=== PATIENT | male | born 1955 | race Caucasian/White ===

== ENCOUNTER 2020-04-24 09:42 | Observation (INO) ==
[2020-04-24 10:12] LABS: Basophils % 0.5 %; Eosinophils % 0.5 %; Hematocrit 41.1 % (37.5-50.1); Hemoglobin 13.4 g/dL (12.9-16.9); Immature Granulocytes % 0.2 % (0-4); Lymphocytes # 0.3 K/mcL (0.6-4.6); Lymphocytes % 7.3 %; Mean Corpuscular HGB Conc 32.6 g/dL (31.6-35.5); Mean Corpuscular Hemoglobin 30.7 pg (28.0-33.3); Mean Corpuscular Volume 94.3 fL (83.0-100.0); Mean Platelet Volume 8.2 fL (9.4-12.4); Monocytes # 0.5 K/mcL (0.0-1.3); Monocytes % 11.2 %; Neutrophils # 3.3 K/mcL (1.6-8.9); Platelet Count 137 K/mcL (140-400); Red Blood Count 4.36 M/mcL (4.19-5.50); Red Cell Distribution Width 13.2 % (11.5-14.5); Segmented Neutrophils % 80.3 %; White Blood Count 4.1 K/mcL (4.3-11.1)
[2020-04-24 10:35] LABS: Alanine Aminotransferase 31 Units/L (7-52); Albumin 4.6 g/dL (3.5-5.7); Albumin/Globulin Ratio 1.7 (1.1-2.2); Alkaline Phosphatase 41 Units/L (34-104); Aspartate Amino Transferase 33 Units/L (13-39); BUN/Creatinine Ratio 14 (6-26); Bilirubin,Total 0.5 mg/dL (0.3-1.0); Blood Urea Nitrogen 14 mg/dL (8-23); Calcium 9.5 mg/dL (8.6-10.3); Carbon Dioxide 24 mEq/L (23-29); Chloride 101 mEq/L (98-107); Globulin 2.7 g/dL (2.4-3.5); Glucose 180 mg/dL (70-105); Osmolality,Calculated 283 (280-300); Sodium 134 mEq/L (136-145); Total Protein 7.3 g/dL (6.4-8.9); eGFR For African Americans > 60 (> 60); eGFR For Non-African Americans > 60 (> 60)
[2020-04-24 10:39] LABS: Troponin I 0.04 ng/mL (< 0.04)
[2020-04-24] MEDS ORDERED: Dexamethasone 4 MG/ML VIAL IVP ONE (10:49)
[2020-04-24] MEDS ORDERED: Acetaminophen 325 MG TABLET PO PRN (10:58)
[2020-04-24] MEDS ORDERED: 0.9 % Sodium Chloride 1,000 ML IVC SCH (11:00)
[2020-04-24] MEDS: atenoloL 50 MG TABLET PO SCH (13:39)
[2020-04-24] MEDS ORDERED: Dextrose Gel 15 GM/37.5 ML TUBE PO PRN ×2 (16:05)
[2020-04-24] MEDS ORDERED: *HR* Dextrose 50 % in Water (Vial) 50 ML VIAL IVP PRN (16:05)
[2020-04-24] MEDS ORDERED: D5% in Water 1,000 ML IVC PRN (16:05)
[2020-04-24] MEDS: Insulin LISPRO 300 UNITS/3 ML VIAL SUBQ SCH (18:03)
[2020-04-25 05:40] LABS: Hematocrit 41.4 % (37.5-50.1); Hemoglobin 13.5 g/dL (12.9-16.9); Mean Corpuscular HGB Conc 32.6 g/dL (31.6-35.5); Mean Corpuscular Hemoglobin 30.5 pg (28.0-33.3); Mean Corpuscular Volume 93.7 fL (83.0-100.0); Mean Platelet Volume 8.5 fL (9.4-12.4); Platelet Count 125 K/mcL (140-400); Red Blood Count 4.42 M/mcL (4.19-5.50); Red Cell Distribution Width 13.4 % (11.5-14.5); White Blood Count 2.8 K/mcL (4.3-11.1)
[2020-04-25 05:46] LABS: INR 1.1; Prothrombin Time 13.1 Seconds (9.4-12.1)
[2020-04-25 06:00] LABS: BUN/Creatinine Ratio 15 (6-26); Blood Urea Nitrogen 17 mg/dL (8-23); Calcium 9.4 mg/dL (8.6-10.3); Carbon Dioxide 25 mEq/L (23-29); Chloride 100 mEq/L (98-107); Glucose 182 mg/dL (70-105); Magnesium 1.9 mg/dL (1.6-2.6); Osmolality,Calculated 286 (280-300); Phosphorous 3.7 mg/dL (2.7-4.5); Potassium 3.9 mEq/L (3.5-5.1); Sodium 135 mEq/L (136-145); eGFR For African Americans > 60 (> 60); eGFR For Non-African Americans > 60 (> 60)
[2020-04-25] MEDS: Dexamethasone 4 MG/ML VIAL IVP SCH (08:18)
[2020-04-25] MEDS: Isosorbide MONOnitrate (24 HR) 30 MG TAB.ER.24H PO SCH (08:19)
[2020-04-25] MEDS: Aspirin Enteric Coated 81 MG Tablet PO SCH (08:19)
[2020-04-25] MEDS: Insulin LISPRO 300 UNITS/3 ML VIAL SUBQ SCH ×3 (08:20→16:53)
[2020-04-25] MEDS: atenoloL 50 MG TABLET PO SCH (08:20)
[2020-04-25] MEDS ORDERED: lisinopriL 10 MG TABLET PO SCH (09:00)
[2020-04-25] MEDS: Ondansetron 4 MG/2 ML VIAL IVP PRN ×2 (11:13→19:50)
[2020-04-25] MEDS ORDERED: Ondansetron 4 MG/2 ML VIAL IM ONE (11:20)
[2020-04-25] MEDS ORDERED: *HR* Promethazine 25 MG/ML VIAL IM ONE (11:47)
[2020-04-26 05:27] LABS: Hematocrit 40.1 % (37.5-50.1); Hemoglobin 12.9 g/dL (12.9-16.9); Immature Granulocytes % 0.3 % (0-4); Lymphocytes # 0.4 K/mcL (0.6-4.6); Lymphocytes % 11.9 %; Mean Corpuscular HGB Conc 32.2 g/dL (31.6-35.5); Mean Corpuscular Volume 96.4 fL (83.0-100.0); Mean Platelet Volume 8.8 fL (9.4-12.4); Monocytes # 0.4 K/mcL (0.0-1.3); Neutrophils # 2.7 K/mcL (1.6-8.9); Platelet Count 143 K/mcL (140-400); Red Blood Count 4.16 M/mcL (4.19-5.50); Red Cell Distribution Width 13.6 % (11.5-14.5); Segmented Neutrophils % 76.8 %; White Blood Count 3.5 K/mcL (4.3-11.1)
[2020-04-26 05:40] LABS: Albumin 4.4 g/dL (3.5-5.7); Albumin/Globulin Ratio 1.5 (1.1-2.2); Bilirubin,Total 0.4 mg/dL (0.3-1.0); Calcium 9.2 mg/dL (8.6-10.3); Globulin 2.9 g/dL (2.4-3.5); Potassium 4.3 mEq/L (3.5-5.1); Total Protein 7.3 g/dL (6.4-8.9)
[2020-04-26] MEDS ORDERED: 0.9 % Sodium Chloride 500 ML IVC ONE (08:08)
[2020-04-26 08:13] VITALS: BP 112/67
[2020-04-26] MEDS ORDERED: 0.9 % Sodium Chloride 1,000 ML IVC SCH (08:15)
[2020-04-26 08:54] LABS: Troponin I 0.07 ng/mL (< 0.04)
[2020-04-26] MEDS ORDERED: Finasteride 5 MG TABLET PO SCH (09:00)
[2020-04-26] MEDS: Insulin LISPRO 300 UNITS/3 ML VIAL SUBQ SCH ×2 (09:02→09:20)
[2020-04-26] MEDS: Isosorbide MONOnitrate (24 HR) 30 MG TAB.ER.24H PO SCH (09:03)
[2020-04-26] MEDS: Aspirin Enteric Coated 81 MG Tablet PO SCH (09:03)
[2020-04-26] MEDS: Dexamethasone 4 MG/ML VIAL IVP SCH (09:04)
== END 2020-04-26 12:45 | disposition home or self-care (01) ==
LOC: EMEROOARM 09:42 → 2NENU 09:42 → SUATTDRO 10:58 → 2NENU 13:07
PROVIDERS: ADMIT Internal Medicine; ATTEND Family Medicine

== ENCOUNTER 2020-04-28 09:34 | Inpatient (IN) ==
[2020-04-28 10:38] LABS: ABG Base Excess -8 mEq/L (-2 to 3); ABG HCO3 25 mEq/L (21-27); ABG Oxygen Saturation 91 % (95-98); ABG PCO2 94 mmHg (35-45); ABG PH 7.04 pH Units (7.32-7.45); ABG PO2 92 mmHg (85-104); ABG TCO2 28 mEq/L (20-26); Blood Gas Modality ASSIST CONTROL; Blood Gas VT 500 cc
[2020-04-28] MEDS ORDERED: 0.9 % Sodium Chloride 1,000 ML IVC ONE (10:45)
[2020-04-28] MEDS ORDERED: *HR* Heparin 5,000 UNIT/ML VIAL IVP PRN ×2 (10:49)
[2020-04-28] MEDS ORDERED: *HR* Heparin 5,000 UNIT/ML VIAL IVP ONE (10:49)
[2020-04-28] MEDS ORDERED: Perflutren Lipid Microsphere 1.3 ML in 0.9 % Sodium Chloride 8.7 ML IVP PRN (10:56)
[2020-04-28] MEDS: FentaNYL (PF) 1,000 MCG/100 ML IV.SOLN IVC SCH ×3 (11:09→23:28)
[2020-04-28 11:23] LABS: Albumin 3.7 g/dL (3.5-5.7); Albumin/Globulin Ratio 1.4 (1.1-2.2); Bilirubin,Total 0.4 mg/dL (0.3-1.0); Calcium 9.3 mg/dL (8.6-10.3); Globulin 2.7 g/dL (2.4-3.5); Magnesium 2.2 mg/dL (1.6-2.6); Total Protein 6.4 g/dL (6.4-8.9); Troponin I 0.3 ng/mL (< 0.04)
[2020-04-28 11:59] LABS: Basophils % 0.2 %; Hematocrit 40.7 % (37.5-50.1); Hemoglobin 12.5 g/dL (12.9-16.9); Immature Granulocytes % 0.6 % (0-4); Lymphocytes # 0.2 K/mcL (0.6-4.6); Lymphocytes % 3.4 %; Mean Corpuscular HGB Conc 30.7 g/dL (31.6-35.5); Mean Corpuscular Hemoglobin 30.3 pg (28.0-33.3); Mean Corpuscular Volume 98.5 fL (83.0-100.0); Mean Platelet Volume 9.1 fL (9.4-12.4); Monocytes # 0.1 K/mcL (0.0-1.3); Monocytes % 1.6 %; Neutrophils # 5.8 K/mcL (1.6-8.9); Platelet Count 105 K/mcL (140-400); Red Blood Count 4.13 M/mcL (4.19-5.50); Red Cell Distribution Width 13.3 % (11.5-14.5); Segmented Neutrophils % 94.2 %; White Blood Count 6.2 K/mcL (4.3-11.1)
[2020-04-28 12:04] LABS: INR 1.1; Prothrombin Time 12.9 Seconds (9.4-12.1)
[2020-04-28] MEDS ORDERED: *HR* LORazepam 2 MG/ML VIAL IVP ONE (12:04)
[2020-04-28] MEDS ORDERED: Isovue-370 500 ML BOTTLE IVP ONE ×2 (12:04→12:05)
[2020-04-28] MEDS ORDERED: *HR* LORazepam 2 MG/ML VIAL ONE (12:05)
[2020-04-28 12:07] LABS: Activated Partial Thrombo Time 25.9 Seconds (26.0-36.0); Heparin anti-factor XA UFH < 0.04 IU/mL (0.30-0.70)
[2020-04-28 13:31] LABS: ABG Base Excess -3 mEq/L (-2 to 3); ABG HCO3 25 mEq/L (21-27); ABG Oxygen Saturation 91 % (95-98); ABG PCO2 59 mmHg (35-45); ABG PH 7.24 pH Units (7.32-7.45); ABG PO2 72 mmHg (85-104); ABG TCO2 27 mEq/L (20-26); Blood Gas Modality ASSIST CONTROL; Blood Gas VT 400 cc
[2020-04-28] MEDS ORDERED: Acetaminophen 650 MG RECTAL SUPP RC PRN (15:12)
[2020-04-28] MEDS ORDERED: Dexamethasone 4 MG/ML VIAL IVP ONE (15:12)
[2020-04-28] MEDS ORDERED: Ondansetron 4 MG/2 ML VIAL IVP PRN (15:12)
[2020-04-28] MEDS ORDERED: Artificial Tears SOLN 15 ML BOTTLE BOTH EYES PRN (15:12)
[2020-04-28] MEDS ORDERED: Naloxone 0.4 MG/ML INJ IVP PRN (15:12)
[2020-04-28] MEDS ORDERED: *HR* Midazolam HCl 5 MG/5 ML VIAL IVP ONE (15:55)
[2020-04-28] MEDS ORDERED: *HR* EPINEPHrine 1 MG/10 ML SYRINGE IVP ONE (16:44)
[2020-04-28] MEDS ORDERED: Remdesivir 200 MG in 0.9 % Sodium Chloride 100 ML IVPB ONE (17:00)
[2020-04-28] MEDS: Midazolam HCl 50 MG/100 ML IV.SOLN IVC SCH (18:04)
[2020-04-28 18:36] LABS: ABG Base Excess -2 mEq/L (-2 to 3); ABG HCO3 26 mEq/L (21-27); ABG Oxygen Saturation 93 % (95-98); ABG PCO2 57 mmHg (35-45); ABG PH 7.27 pH Units (7.32-7.45); ABG PO2 78 mmHg (85-104); ABG TCO2 28 mEq/L (20-26); Blood Gas Modality ASSIST CONTROL; Blood Gas VT 460 cc
[2020-04-28] MEDS: Dexmedetomidine HCl 400 MCG/100 ML MLS IVC SCH (19:23)
[2020-04-28] MEDS: Artificial Tears SOLN 15 ML BOTTLE BOTH EYES SCH ×3 (19:24→23:20)
[2020-04-28] MEDS: Heparin 25,000UNIT/250ML 1/2NS 25,000 UNIT/250 ML IV.SOLN IVC SCH (19:26)
[2020-04-28] MEDS ORDERED: Dextrose Gel 15 GM/37.5 ML TUBE PO PRN ×2 (19:30)
[2020-04-28] MEDS ORDERED: D5% in Water 1,000 ML IVC PRN (19:30)
[2020-04-28] MEDS ORDERED: *HR* Dextrose 50 % in Water (Vial) 50 ML VIAL IVP PRN (19:30)
[2020-04-28 20:09] LABS: INR 1.2; Prothrombin Time 13.3 Seconds (9.4-12.1)
[2020-04-28 20:12] LABS: Basophils % 0.1 %; Hematocrit 39.3 % (37.5-50.1); Hemoglobin 12.5 g/dL (12.9-16.9); Immature Granulocytes % 0.4 % (0-4); Lymphocytes # 0.2 K/mcL (0.6-4.6); Mean Corpuscular HGB Conc 31.8 g/dL (31.6-35.5); Mean Corpuscular Volume 94.5 fL (83.0-100.0); Mean Platelet Volume 9.3 fL (9.4-12.4); Monocytes # 0.2 K/mcL (0.0-1.3); Neutrophils # 6.5 K/mcL (1.6-8.9); Platelet Count 100 K/mcL (140-400); Red Blood Count 4.16 M/mcL (4.19-5.50); Red Cell Distribution Width 13.5 % (11.5-14.5); Segmented Neutrophils % 93.5 %; White Blood Count 6.9 K/mcL (4.3-11.1)
[2020-04-28 20:17] LABS: VBG Ionized Calcium 1.13 mmol/L (1.15-1.35)
[2020-04-28] MEDS ORDERED: 0.9 % Sodium Chloride 1,000 ML ONE (20:23)
[2020-04-28 20:24] LABS: Calcium 8.8 mg/dL (8.6-10.3); Magnesium 1.9 mg/dL (1.6-2.6); Potassium 5.4 mEq/L (3.5-5.1)
[2020-04-28] MEDS: Chlorhexidine Rinse 15 ML MOUTHWASH MM SCH (20:29)
[2020-04-28] MEDS: Vecuronium 50 MG in 0.9 % Sodium Chloride 150 ML IVC SCH (21:15)
[2020-04-28] MEDS: Insulin Human Regular 100 UNIT in 0.9 % Sodium Chloride 100 ML IVC SCH (22:01)
[2020-04-29 02:28] LABS: Red Cell Distribution Width 13.4 % (11.5-14.5)
[2020-04-29 02:30] LABS: Immature Granulocytes % 0.2 % (0-4); Immature Platelets 2.3 % (1.1-6.1); Lymphocytes # 0.2 K/mcL (0.6-4.6); Lymphocytes % 4.3 %; Mean Corpuscular HGB Conc 32.4 g/dL (31.6-35.5); Mean Corpuscular Hemoglobin 30.2 pg (28.0-33.3); Mean Corpuscular Volume 93.2 fL (83.0-100.0); Mean Platelet Volume 9.1 fL (9.4-12.4); Monocytes # 0.1 K/mcL (0.0-1.3); Monocytes % 2.3 %; Platelet Count 106 K/mcL (140-400); Red Blood Count 3.97 M/mcL (4.19-5.50); Segmented Neutrophils % 93.2 %; White Blood Count 5.6 K/mcL (4.3-11.1)
[2020-04-29 02:31] LABS: VBG Ionized Calcium 1.15 mmol/L (1.15-1.35)
[2020-04-29 02:31] LABS: Neutrophils # 5.2 K/mcL (1.6-8.9)
[2020-04-29 02:32] LABS: INR 1.3; Prothrombin Time 14.7 Seconds (9.4-12.1)
[2020-04-29 02:52] LABS: Albumin 3.5 g/dL (3.5-5.7); Albumin/Globulin Ratio 1.3 (1.1-2.2); Bilirubin,Total 0.5 mg/dL (0.3-1.0); Calcium 8.8 mg/dL (8.6-10.3); Globulin 2.6 g/dL (2.4-3.5); Potassium 3.9 mEq/L (3.5-5.1); Total Protein 6.1 g/dL (6.4-8.9)
[2020-04-29 03:36] LABS: Heparin anti-factor XA UFH 0.61 IU/mL (0.30-0.70)
[2020-04-29] MEDS: Vecuronium 50 MG in 0.9 % Sodium Chloride 150 ML IVC SCH ×3 (03:40→17:30)
[2020-04-29] MEDS: Dexmedetomidine HCl 400 MCG/100 ML MLS IVC SCH (03:46)
[2020-04-29 03:57] LABS: Troponin I 1.06 ng/mL (< 0.04)
[2020-04-29] MEDS: Artificial Tears SOLN 15 ML BOTTLE BOTH EYES SCH ×5 (04:00→19:32)
[2020-04-29] MEDS: FentaNYL (PF) 1,000 MCG/100 ML IV.SOLN IVC SCH (04:21)
[2020-04-29 04:41] LABS: ABG Base Excess -2 mEq/L (-2 to 3); ABG HCO3 24 mEq/L (21-27); ABG Oxygen Saturation 99 % (95-98); ABG PCO2 45 mmHg (35-45); ABG PH 7.34 pH Units (7.32-7.45); ABG PO2 138 mmHg (85-104); ABG TCO2 26 mEq/L (20-26); Blood Gas VT 450 cc
[2020-04-29] MEDS: Midazolam HCl 50 MG/100 ML IV.SOLN IVC SCH ×2 (04:45→18:00)
[2020-04-29] MEDS: Pantoprazole 40 MG VIAL IVP SCH (07:42)
[2020-04-29] MEDS: Chlorhexidine Rinse 15 ML MOUTHWASH MM SCH ×2 (07:42→19:31)
[2020-04-29 08:19] LABS: VBG Ionized Calcium 1.16 mmol/L (1.15-1.35)
[2020-04-29 08:24] LABS: Heparin anti-factor XA UFH 0.79 IU/mL (0.30-0.70)
[2020-04-29 08:25] LABS: INR 1.2; Prothrombin Time 14.1 Seconds (9.4-12.1)
[2020-04-29 08:38] LABS: Calcium 8.8 mg/dL (8.6-10.3); Potassium 3.8 mEq/L (3.5-5.1)
[2020-04-29] MEDS: FentaNYL (PF) 2,500 MCG/50 ML IV.SOLN IVC SCH ×2 (10:12→23:01)
[2020-04-29 14:46] LABS: INR 1.2; Prothrombin Time 14.2 Seconds (9.4-12.1)
[2020-04-29 14:57] LABS: VBG Ionized Calcium 1.17 mmol/L (1.15-1.35)
[2020-04-29 15:00] LABS: Calcium 8.7 mg/dL (8.6-10.3); Magnesium 1.9 mg/dL (1.6-2.6); Potassium 3.8 mEq/L (3.5-5.1)
[2020-04-29] MEDS: Insulin Human Regular 100 UNIT in 0.9 % Sodium Chloride 100 ML IVC SCH (16:00)
[2020-04-29] MEDS: Remdesivir 100 MG in 0.9 % Sodium Chloride 100 ML IVPB SCH (16:26)
[2020-04-29] MEDS: Norepinephrine 4 MG/254 ML IV.SOLN IVC SCH (19:05)
[2020-04-29] MEDS: Heparin 25,000UNIT/250ML 1/2NS 25,000 UNIT/250 ML IV.SOLN IVC SCH ×2 (19:05→23:45)
[2020-04-29 20:01] LABS: VBG Ionized Calcium 1.11 mmol/L (1.15-1.35)
[2020-04-29 20:04] LABS: Heparin anti-factor XA UFH 0.59 IU/mL (0.30-0.70)
[2020-04-29 20:05] LABS: INR 1.2; Prothrombin Time 13.8 Seconds (9.4-12.1)
[2020-04-29 20:18] LABS: Calcium 8.4 mg/dL (8.6-10.3); Magnesium 1.9 mg/dL (1.6-2.6); Potassium 3.8 mEq/L (3.5-5.1)
[2020-04-30] MEDS: Artificial Tears SOLN 15 ML BOTTLE BOTH EYES SCH ×6 (00:07→19:47)
[2020-04-30] MEDS: Vecuronium 50 MG in 0.9 % Sodium Chloride 150 ML IVC SCH ×4 (00:41→22:36)
[2020-04-30] MEDS: Dexmedetomidine HCl 400 MCG/100 ML MLS IVC SCH (03:20)
[2020-04-30] MEDS: Norepinephrine 4 MG/254 ML IV.SOLN IVC SCH (04:18)
[2020-04-30 04:33] LABS: Basophils % 0.2 %; Hematocrit 36.5 % (37.5-50.1); Hemoglobin 11.9 g/dL (12.9-16.9); Immature Granulocytes % 0.8 % (0-4); Lymphocytes # 0.3 K/mcL (0.6-4.6); Lymphocytes % 5.3 %; Mean Corpuscular HGB Conc 32.6 g/dL (31.6-35.5); Mean Corpuscular Hemoglobin 31.2 pg (28.0-33.3); Mean Corpuscular Volume 95.5 fL (83.0-100.0); Mean Platelet Volume 9.8 fL (9.4-12.4); Monocytes # 0.2 K/mcL (0.0-1.3); Monocytes % 3.6 %; Neutrophils # 4.6 K/mcL (1.6-8.9); Platelet Count 105 K/mcL (140-400); Red Blood Count 3.82 M/mcL (4.19-5.50); Red Cell Distribution Width 13.5 % (11.5-14.5); Segmented Neutrophils % 90.1 %; White Blood Count 5.1 K/mcL (4.3-11.1)
[2020-04-30 04:34] LABS: ABG Base Excess -4 mEq/L (-2 to 3); ABG HCO3 23 mEq/L (21-27); ABG Oxygen Saturation 96 % (95-98); ABG PCO2 48 mmHg (35-45); ABG PH 7.28 pH Units (7.32-7.45); ABG PO2 89 mmHg (85-104); ABG TCO2 24 mEq/L (20-26); Blood Gas VT 450 cc
[2020-04-30 04:36] LABS: INR 1.2; Prothrombin Time 14.3 Seconds (9.4-12.1)
[2020-04-30 04:46] LABS: VBG Ionized Calcium 1.06 mmol/L (1.15-1.35)
[2020-04-30 04:53] LABS: Calcium 8.2 mg/dL (8.6-10.3); Magnesium 1.9 mg/dL (1.6-2.6); Potassium 4.3 mEq/L (3.5-5.1)
[2020-04-30] MEDS: Insulin LISPRO 300 UNITS/3 ML VIAL SUBQ SCH ×6 (05:00→23:40)
[2020-04-30] MEDS: Midazolam HCl 50 MG/100 ML IV.SOLN IVC SCH ×2 (06:41→19:43)
[2020-04-30] MEDS: Chlorhexidine Rinse 15 ML MOUTHWASH MM SCH ×2 (07:42→19:45)
[2020-04-30] MEDS: Pantoprazole 40 MG VIAL IVP SCH (07:42)
[2020-04-30 10:37] LABS: INR 1.3; Prothrombin Time 14.5 Seconds (9.4-12.1)
[2020-04-30 10:51] LABS: Calcium 8.3 mg/dL (8.6-10.3); Potassium 4.1 mEq/L (3.5-5.1)
[2020-04-30 10:57] LABS: VBG Ionized Calcium 1.09 mmol/L (1.15-1.35)
[2020-04-30] MEDS: FentaNYL (PF) 2,500 MCG/50 ML IV.SOLN IVC SCH ×2 (11:50→23:06)
[2020-04-30 11:52] LABS: Albumin 3.3 g/dL (3.5-5.7); Albumin/Globulin Ratio 1.2 (1.1-2.2); Bilirubin,Direct 0.2 mg/dL (0.0-0.2); Bilirubin,Indirect 0.4 mg/dL (0.0-1.0); Bilirubin,Total 0.6 mg/dL (0.3-1.0); Globulin 2.7 g/dL (2.4-3.5)
[2020-04-30] MEDS ORDERED: Cefepime HCl 1,000 MG in Water for inj. (sterile) 10 ML IVP SCH (16:00)
[2020-04-30] MEDS: Dexamethasone 4 MG/ML VIAL IVP SCH (16:01)
[2020-04-30] MEDS: Cefepime HCl 1,000 MG in Water for inj. (sterile) 10 ML IVP SCH (16:01)
[2020-04-30] MEDS: Remdesivir 100 MG in 0.9 % Sodium Chloride 100 ML IVPB SCH (16:25)
[2020-04-30 21:05] LABS: VBG Ionized Calcium 1.07 mmol/L (1.15-1.35)
[2020-04-30 21:16] LABS: Heparin anti-factor XA UFH 0.38 IU/mL (0.30-0.70); INR 1.2; Prothrombin Time 13.8 Seconds (9.4-12.1)
[2020-04-30 21:20] LABS: Activated Partial Thrombo Time 43.8 Seconds (26.0-36.0)
[2020-04-30 21:23] LABS: Albumin 3.3 g/dL (3.5-5.7); Albumin/Globulin Ratio 1.3 (1.1-2.2); Bilirubin,Total 0.5 mg/dL (0.3-1.0); Calcium 8.2 mg/dL (8.6-10.3); Globulin 2.6 g/dL (2.4-3.5); Magnesium 2.1 mg/dL (1.6-2.6); Phosphorous 4.2 mg/dL (2.7-4.5); Potassium 4.2 mEq/L (3.5-5.1); Total Protein 5.9 g/dL (6.4-8.9)
[2020-04-30] MEDS: Calcium Gluconate 1gm/50mL 1 GM/50 ML BAG IVPB SCH ×2 (22:38→23:05)
[2020-05-01] MEDS: Cefepime HCl 1,000 MG in Water for inj. (sterile) 10 ML IVP SCH ×4 (00:54→23:17)
[2020-05-01] MEDS: Artificial Tears SOLN 15 ML BOTTLE BOTH EYES SCH ×7 (00:55→23:17)
[2020-05-01] MEDS: Insulin LISPRO 300 UNITS/3 ML VIAL SUBQ SCH ×6 (03:18→23:16)
[2020-05-01 03:44] LABS: Basophils % 0.2 %; Hematocrit 38.6 % (37.5-50.1); Immature Granulocytes % 2.6 % (0-4); Immature Platelets 3.9 % (1.1-6.1); Lymphocytes # 0.2 K/mcL (0.6-4.6); Lymphocytes % 3.1 %; Mean Corpuscular HGB Conc 31.1 g/dL (31.6-35.5); Mean Corpuscular Hemoglobin 29.6 pg (28.0-33.3); Mean Corpuscular Volume 95.3 fL (83.0-100.0); Mean Platelet Volume 9.9 fL (9.4-12.4); Monocytes # 0.2 K/mcL (0.0-1.3); Monocytes % 3.4 %; Neutrophils # 5.3 K/mcL (1.6-8.9); Nucleated Red Blood Cells 0.9 /100 WBC (0); Platelet Count 143 K/mcL (140-400); Red Blood Count 4.05 M/mcL (4.19-5.50); Red Cell Distribution Width 13.6 % (11.5-14.5); Segmented Neutrophils % 90.7 %; White Blood Count 5.8 K/mcL (4.3-11.1)
[2020-05-01 03:52] LABS: INR 1.2; Prothrombin Time 13.7 Seconds (9.4-12.1)
[2020-05-01 03:55] LABS: Activated Partial Thrombo Time 33.9 Seconds (26.0-36.0)
[2020-05-01 03:59] LABS: VBG Ionized Calcium 1.13 mmol/L (1.15-1.35)
[2020-05-01 04:01] LABS: Chol/HDL Ratio 7.6 (0-4.9); Cholesterol 175 mg/dL (< 200); HDL Cholesterol 23 mg/dL (40-59); Triglycerides 510 mg/dL (< 150)
[2020-05-01 04:08] LABS: Albumin 3.2 g/dL (3.5-5.7); Albumin/Globulin Ratio 1.1 (1.1-2.2); Bilirubin,Direct 0.1 mg/dL (0.0-0.2); Bilirubin,Indirect 0.4 mg/dL (0.0-1.0); Bilirubin,Total 0.5 mg/dL (0.3-1.0); Calcium 8.3 mg/dL (8.6-10.3); Globulin 2.8 g/dL (2.4-3.5); Magnesium 2.1 mg/dL (1.6-2.6); Potassium 4.4 mEq/L (3.5-5.1)
[2020-05-01 04:23] LABS: Platelet Estimate Slight Decrease (Normal)
[2020-05-01 05:09] LABS: ABG Base Excess -4 mEq/L (-2 to 3); ABG HCO3 23 mEq/L (21-27); ABG Oxygen Saturation 95 % (95-98); ABG PCO2 49 mmHg (35-45); ABG PH 7.28 pH Units (7.32-7.45); ABG PO2 86 mmHg (85-104); ABG TCO2 24 mEq/L (20-26); Blood Gas Modality ASSIST CONTROL; Blood Gas VT 480 cc
[2020-05-01] MEDS: Heparin 25,000UNIT/250ML 1/2NS 25,000 UNIT/250 ML IV.SOLN IVC SCH (05:09)
[2020-05-01] MEDS: Norepinephrine 4 MG/254 ML IV.SOLN IVC SCH (07:34)
[2020-05-01] MEDS: Dexmedetomidine HCl 400 MCG/100 ML MLS IVC SCH ×3 (07:34→17:18)
[2020-05-01] MEDS: Chlorhexidine Rinse 15 ML MOUTHWASH MM SCH ×2 (08:07→21:07)
[2020-05-01] MEDS: Dexamethasone 4 MG/ML VIAL IVP SCH (08:07)
[2020-05-01] MEDS: Pantoprazole 40 MG VIAL IVP SCH (08:07)
[2020-05-01] MEDS: Midazolam HCl 50 MG/100 ML IV.SOLN IVC SCH (09:15)
[2020-05-01] MEDS: FentaNYL (PF) 2,500 MCG/50 ML IV.SOLN IVC SCH (13:30)
[2020-05-01] MEDS: *HR* Heparin 5,000 UNIT/ML VIAL SQ SCH ×2 (15:23→21:07)
[2020-05-01] MEDS: Aspirin 325 MG TABLET PO SCH (15:24)
[2020-05-01] MEDS: Remdesivir 100 MG in 0.9 % Sodium Chloride 100 ML IVPB SCH (17:19)
[2020-05-01] MEDS ORDERED: *HR* Labetalol 20 MG/4 ML SYRINGE IVP PRN (22:56)
[2020-05-02] MEDS: Artificial Tears SOLN 15 ML BOTTLE BOTH EYES SCH ×3 (04:04→11:12)
[2020-05-02] MEDS: Insulin LISPRO 300 UNITS/3 ML VIAL SUBQ SCH ×2 (04:04→09:24)
[2020-05-02] MEDS: *HR* Labetalol 20 MG/4 ML SYRINGE IVP PRN ×2 (04:05→08:42)
[2020-05-02 04:35] LABS: Basophils % 0.5 %; Eosinophils % 0.2 %; Hematocrit 43.8 % (37.5-50.1); Hemoglobin 13.2 g/dL (12.9-16.9); Immature Granulocytes % 1.5 % (0-4); Lymphocytes # 0.2 K/mcL (0.6-4.6); Lymphocytes % 2.5 %; Mean Corpuscular HGB Conc 30.1 g/dL (31.6-35.5); Mean Corpuscular Hemoglobin 29.5 pg (28.0-33.3); Mean Platelet Volume 9.2 fL (9.4-12.4); Monocytes # 0.4 K/mcL (0.0-1.3); Monocytes % 4.4 %; Neutrophils # 7.8 K/mcL (1.6-8.9); Nucleated Red Blood Cells 1.1 /100 WBC (0); Platelet Count 155 K/mcL (140-400); Red Blood Count 4.47 M/mcL (4.19-5.50); Red Cell Distribution Width 13.8 % (11.5-14.5); Segmented Neutrophils % 90.9 %; White Blood Count 8.6 K/mcL (4.3-11.1)
[2020-05-02 04:56] LABS: Albumin 3.3 g/dL (3.5-5.7); Albumin/Globulin Ratio 1.1 (1.1-2.2); Bilirubin,Total 0.5 mg/dL (0.3-1.0); Calcium 7.7 mg/dL (8.6-10.3); Globulin 3.1 g/dL (2.4-3.5); Magnesium 2.3 mg/dL (1.6-2.6); Phosphorous 5.1 mg/dL (2.7-4.5); Potassium 4.8 mEq/L (3.5-5.1); Total Protein 6.4 g/dL (6.4-8.9)
[2020-05-02 05:03] LABS: ABG Base Excess -4 mEq/L (-2 to 3); ABG HCO3 24 mEq/L (21-27); ABG Oxygen Saturation 92 % (95-98); ABG PCO2 58 mmHg (35-45); ABG PH 7.23 pH Units (7.32-7.45); ABG PO2 75 mmHg (85-104); ABG TCO2 26 mEq/L (20-26); Blood Gas Modality ASSIST CONTROL; Blood Gas VT 450 cc
[2020-05-02 05:21] LABS: Platelet Estimate Normal (Normal)
[2020-05-02] MEDS ORDERED: Calcium Gluconate 1gm/50mL 1 GM/50 ML BAG IVPB ONE (05:35)
[2020-05-02] MEDS: *HR* Heparin 5,000 UNIT/ML VIAL SQ SCH (06:19)
[2020-05-02] MEDS: Cefepime HCl 1,000 MG in Water for inj. (sterile) 10 ML IVP SCH (07:45)
[2020-05-02] MEDS: Chlorhexidine Rinse 15 ML MOUTHWASH MM SCH (07:46)
[2020-05-02] MEDS: Dexamethasone 4 MG/ML VIAL IVP SCH (07:46)
[2020-05-02] MEDS: Pantoprazole 40 MG VIAL IVP SCH (07:46)
[2020-05-02] MEDS: Aspirin 325 MG TABLET PO SCH (07:46)
[2020-05-02] MEDS ORDERED: Vancomycin 1 EACH in 0.9 % Sodium Chloride 250 ML IVPB PRN (08:17)
[2020-05-02] MEDS ORDERED: Vancomycin 1,500 MG/265 ML IV.SOLN IVPB ONE (08:35)
[2020-05-02 10:25] LABS: Bacteria,Urine Few per hpf (None-Few); Bilirubin,Urine Negative (Negative); Blood,Urine Large (Negative); Clarity,Urine Turbid (Clear); Color,Urine Light-Yellow (Yellow); Glucose,Urine (UA) 200 mg/dL (Normal); Ketones,Urine Negative (Negative); Leukocyte Esterase,Urine Negative (Negative); Nitrite,Urine Positive (Negative); Protein,Urine 100 mg/dL (Neg-Trace); RBC,Urine 50-100 per hpf (0-3); Specific Gravity,Urine 1.024 (1.010-1.025); Sperm,Urine Present (None Seen); Urobilinogen,Urine Normal (Normal); WBC,Urine 0-3 per hpf (0-3)
[2020-05-02] MEDS ORDERED: Insulin LISPRO 300 UNITS/3 ML VIAL SUBQ SCH (10:25)
[2020-05-02 11:47] LABS: Albumin 3.3 g/dL (3.5-5.7); Albumin/Globulin Ratio 1.1 (1.1-2.2); Bilirubin,Direct 0.2 mg/dL (0.0-0.2); Bilirubin,Indirect 0.3 mg/dL (0.0-1.0); Bilirubin,Total 0.5 mg/dL (0.3-1.0); Total Protein 6.3 g/dL (6.4-8.9)
[2020-05-02 15:12] VITALS: BP 179/97
[2020-05-02] MEDS ORDERED: *HR* LORazepam 2 MG/ML VIAL IVP PRN (15:21)
[2020-05-02] MEDS ORDERED: *HR* FentaNYL (PF) 100 MCG/2 ML VIAL IVP PRN (15:30)
[2020-05-02] MEDS ORDERED: Cefepime HCl 1,000 MG in Water for inj. (sterile) 10 ML IVP SCH (20:00)
== END 2020-05-02 16:45 | disposition expired | DRG 207 ==
LOC: EMEROOARM 09:34 → 2NENU 13:41 → ICNU 15:18
PROVIDERS: ADMIT Family Medicine; ATTEND Family Medicine
PROC: ENDOBRF (2020-04-29 10:00)